=== PATIENT | male | born 1975 | race Caucasian/White ===

== ENCOUNTER 2018-09-03 19:34 | Inpatient (IN) | payer MEDICAID, OTHER ==
[~2018-09-03] VITALS: Ht 175.3 cm; Wt 103.1 kg
[2018-09-03] MEDS ORDERED: FAMOTIDINE 20 MG TAB PO STA (21:09)
[2018-09-03] MEDS ORDERED: LIDOCAINE/MYLANTA 40 ML BTL PO STA (21:09)
[2018-09-03] MEDS ORDERED: BELLADONNA/PHENOBARBITAL TAB PO STA (21:09)
[2018-09-03] MEDS ORDERED: SOD CHLORIDE 0.9% 500 ML IV STA (21:09)
--- NOTE | 2018-09-03 21:16 | ERD ---
ER Documentation Chief Complaint Chief Complaint burning sensation in the pit of his stomach after sips of beer; sweats, too HPI This is a 42-year-old man here for complaints of sharp severe epigastric discomfort occurring at rest while at home he had associated diaphoresis as well. He denies eating anything unusual or spicy prior to the episode states the pain was nonexertional and nonradiating and lasted for about half an hour. He has a long history of hypertension but is noncompliant with medications, he states about a year ago he used antihypertensive medication for a few weeks and then stopped because he wanted to control his blood pressure naturally. Patient states his chest pain has improved since arrival, he denies fevers or chills, no cough, no headache or blurry vision, no loss of consciousness. ROS All systems reviewed and are negative except as per history of present illness. Medications Home Meds No Active Prescriptions or Reported Meds Allergies Allergies: Coded Allergies: No Known Allergy (Verified , 10/22/10) PMhx/Soc Hypertension, medication noncompliance, obesity Medical and Surgical Hx: pt denies Medical Hx History of Surgery: Yes (APPENDECTOMY 2007) Anesthesia Reaction: No Hx Neurological Disorder: No Hx Respiratory Disorders: No Hx Cardiac Disorders: No Hx Psychiatric Problems: No Hx Miscellaneous Medical Probl: No Hx Alcohol Use: No Hx Substance Use: No Hx Tobacco Use: No Smoking Status: Never smoker FmHx Family History: No diabetes Physical Exam Vitals Vital Signs Date Temp Pulse Resp B/P (MAP) Pulse Ox O2 O2 Flow FiO2 Time Delivery Rate 09/03/18 96.7 72 18 192/113 98 19:36 (139) Physical Exam GENERAL: Well-developed, well-nourished, well-hydrated, in no apparent distress, looks nontoxic in appearance HEENT: Moist mucous membranes, pink conjunctiva, no cervical spine tenderness or step-off deformities, no goiter, no jaundice or icterus, extraocular movements intact without pain. No submandibular induration, and no pharyngeal erythema NEURO: Alert and oriented 3, cranial nerves II through XII intact bilaterally, pupils equal round reactive to light, no focal deficits or facial asymmetry, sensation intact distally Strength 5/5 in upper and lower extremities bilaterally CARDIAC: Regular rate and rhythm, no murmurs rubs or gallops LUNGS: Clear bilaterally no wheezing crackles or stridor ABDOMEN: Soft nontender, no guarding, no rigidity, no rebound, no psoas sign no obturator sign. Normoactive bowel sounds SKIN: Warm and dry to touch, no abrasions, contusions, or hematomas, no lacerat ions, no ecchymosis, no target lesions, and without ulcers EXTREMITIES: No clubbing cyanosis or edema, calves are bilaterally symmetrical, no Homans sign, no popliteal cord sign. Distal pulses equal and bilateral PSYCH: Normal affect without agitation or irritability Result Diagram: 09/03/18202309/03/182023 Results 24 hrs Laboratory Tests Test 09/03/18 20:24 White Blood Count 15.9 10^3/ul Red Blood Count 5.86 10^6/ul Hemoglobin 17.2 g/dl Hematocrit 51.0 % Mean Corpuscular Volume 87.0 fl Mean Corpuscular Hemoglobin 29.4 pg Mean Corpuscular Hemoglobin Concent 33.7 g/dl Red Cell Distribution Width 12.5 % Platelet Count 252 10^3/UL Mean Platelet Volume 11.3 fl Immature Granulocytes % 0.400 % Neutrophils % 88.5 % Lymphocytes % 7.3 % Monocytes % 3.2 % Eosinophils % 0.1 % Basophils % 0.5 % Nucleated Red Blood Cells % 0.0 /100WBC Immature Granulocytes # 0.060 10^3/ul Neutrophils # 14.0 10^3/ul Lymphocytes # 1.2 10^3/ul Monocytes # 0.5 10^3/ul Eosinophils # 0.0 10^3/ul Basophils # 0.1 10^3/ul Nucleated Red Blood Cells # 0.0 10^3/ul Sodium Level 140 mmol/L Potassium Level 3.6 mmol/L Chloride Level 103 mmol/L Carbon Dioxide Level 26 mmol/L Anion Gap 11 Blood Urea Nitrogen 19 mg/dl Creatinine 0.95 mg/dl Est Glomerular Filtrat Rate mL/min > 60 mL/min Glucose Level 151 mg/dl Calcium Level 9.5 mg/dl Total Bilirubin 0.5 mg/dl Direct Bilirubin 0.00 mg/dl Indirect Bilirubin 0.5 mg/dl Aspartate Amino Transf (AST/SGOT) 121 IU/L Alanine Aminotransferase (ALT/SGPT) 57 IU/L Alkaline Phosphatase 61 IU/L Troponin I 4.870 ng/ml Total Protein 8.0 g/dl Albumin 4.5 g/dl Globulin 3.50 g/dl Albumin/Globulin Ratio 1.28 Lipase 86 U/L Current Medications Medications Dose Sig/Cal Start Time Status Last (Trade) Ordered Route PRN Stop Time Admin Dose Reason Admin 25 mg ONCE ONCE 09/03/18 DC 09/03/18 Hydrochloroth PO 21:30 21:26 iazide 09/03/18 21:31 (Hydrochlorot hiazide) Sodium 500 ml @ Q1H STAT 09/03/18 DC 09/03/18 Chloride 500 mls/hr IV 21:09 21:23 09/03/18 22:08 Famotidine 20 mg ONCE STAT 09/03/18 DC 09/03/18 (Pepcid) PO 21:09 21:23 09/03/18 21:10 40 ml ONCE STAT 09/03/18 DC 09/03/18 Miscellaneous PO 21:09 21:24 Medication 09/03/18 21:10 (Gi Cocktail (2)) Belladonna/ 2 tab ONCE STAT 09/03/18 DC 09/03/18 Phenobarbital PO 21:09 21:23 () 09/03/18 21:10 Aspirin 324 mg ONCE ONCE 09/03/18 DC 09/03/18 (Aspirin) PO 21:30 21:23 09/03/18 21:31 Procedures/MDM IV line was established 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 Patient was afebrile EKG performed, read by me revealed a normal sinus rhythm at 77 bpm, normal axis, narrow QRS complex, no concerning ST elevations or depressions noted one AP view of the chest performed, read by me reveals no acute infiltrates, normal mediastinum, sharp costophrenic and cardiac borders, no air under the diaphragm. Otherwise unremarkable chest x-ray. I administered 500 cc normal saline IV and hydrochlorothiazide 25 mg p.o. x1 for hypertension. EKG #2 was performed about an hour and a half later reveals a normal sinus rhythm at 75 bpm, normal axis, narrow QRS complex, nonspecific T wave inversions in precordial leads, no concerning ST elevations or depressions noted. Also administered a GI cocktail p.o., famotidine p.o., aspirin 324 mg p.o. for cardioprotective measures. CBC reveals a leukocytosis of 16, electrolytes are unremarkable, liver function test normal, troponin positive at 5 Patient has no complaints of chest pain at this time and is epigastric abdominal pain has resolved but patient did have concerning symptoms this afternoon and was severely hypertensive on arrival. His blood pressure has improved as well but he will be admitted to telemetry setting for continued medical management cardiology consultation Departure Diagnosis: Primary Impression: Non-STEMI (non-ST elevated myocardial infarction) Additional Impression: Hypertensive emergency Condition: IBETH Knutson MD Sep 03, 2018 21:16
[2018-09-03] MEDS ORDERED: ASPIRIN 81 MG TAB PO ONE (21:30)
[2018-09-03] MEDS ORDERED: HYDROCHLOROTHIAZIDE 25 MG TAB PO ONE (21:30)
[2018-09-03 23:46] VITALS: Ht 175.3 cm; Wt 103.1 kg
[2018-09-04] VITALS (9 sets, daily range): BP systolic 138–182; BP diastolic 81–120; PULSE 62–80; RESP 18
[2018-09-04] MEDS ORDERED: hydrALAzine 20 MG INJ IV ONE ×2 (00:30→08:30)
[2018-09-04] MEDS ORDERED: ONDANSETRON 4 MG INJ IV PRN (02:30)
[2018-09-04] MEDS ORDERED: ALBUTEROL/IPRATROPIUM (NEB) 3 ML AMP HHN PRN (02:30)
[2018-09-04] MEDS ORDERED: NACL 0.9% 3 ML SYG IV SCH (02:30)
[2018-09-04] MEDS ORDERED: NITROGLYCERIN (SL) 0.4 MG TAB SL PRN (02:30)
[2018-09-04] MEDS ORDERED: ACETAMINOPHEN 325 MG TAB PO PRN (02:30)
[2018-09-04] MEDS ORDERED: ENOXAPARIN 100 MG/ML SYG SC SCH ×2 (02:30→03:00)
[2018-09-04] MEDS ORDERED: ATORVASTATIN 80 MG TAB PO ONE (03:00)
[2018-09-04] MEDS: DEXTROSE 5%-0.45% NACL 1,000 ML IV SCH ×2 (03:19→12:03)
--- NOTE | 2018-09-04 05:07 | HP ---
Date/Time of Note Date/Time of Note DATE: 09/04/18 TIME: 05:04 Assessment/Plan VTE Prophylaxis Pharmacological prophylaxis: LMWH Lines/Catheters IV Catheter Type (from Nrs): Saline Lock Assessment/Plan Assessment/Plan 1. NSTEMI -Currently on a treatment dose Lovenox. She is status post high-dose aspirin -Supplemental oxygen, aspirin, beta-radha, statin. As needed nitro and morphine -2D echo and cardiology consult 2. Hypertensive urgency: BP better controlled. Adjust hypertensive as needed 3. Leukocytosis: Likely reactive -Check UA Result Diagram: 09/04/18 0225 09/04/18 0225 Results 24hrs Laboratory Tests Test 09/03/18 20:24 09/04/18 02:25 White Blood Count 15.9 H 15.5 H Red Blood Count 5.86 5.78 Hemoglobin 17.2 17.0 Hematocrit 51.0 50.2 Mean Corpuscular Volume 87.0 86.9 Mean Corpuscular Hemoglobin 29.4 29.4 Mean Corpuscular Hemoglobin Concent 33.7 33.9 Red Cell Distribution Width 12.5 12.6 Platelet Count 252 268 Mean Platelet Volume 11.3 H 10.5 H Immature Granulocytes % 0.400 0.500 H Neutrophils % 88.5 H 75.2 Lymphocytes % 7.3 L 17.6 Monocytes % 3.2 6.1 Eosinophils % 0.1 0.2 Basophils % 0.5 0.4 Nucleated Red Blood Cells % 0.0 0.0 Immature Granulocytes # 0.060 H 0.070 H Neutrophils # 14.0 H 11.6 H Lymphocytes # 1.2 2.7 Monocytes # 0.5 0.9 Eosinophils # 0.0 0.0 Basophils # 0.1 0.1 Nucleated Red Blood Cells # 0.0 0.0 Sodium Level 140 142 Potassium Level 3.6 4.1 Chloride Level 103 103 Carbon Dioxide Level 26 29 Anion Gap 11 10 Blood Urea Nitrogen 19 16 Creatinine 0.95 0.89 Est Glomerular Filtrat Rate mL/min > 60 > 60 Glucose Level 151 129 Calcium Level 9.5 9.1 Total Bilirubin 0.5 0.8 Direct Bilirubin 0.00 0.00 Indirect Bilirubin 0.5 0.8 Aspartate Amino Transf (AST/SGOT) 121 H 385 #H Alanine Aminotransferase (ALT/SGPT) 57 64 Alkaline Phosphatase 61 56 Troponin I 4.870 *H 106.000 *H Total Protein 8.0 7.7 Albumin 4.5 4.3 Globulin 3.50 H 3.40 H Albumin/Globulin Ratio 1.28 1.26 Lipase 86 Hemoglobin A1c 5.4 Magnesium Level 1.9 Creatine Kinase 2854 H Creatine Kinase Index 6.6 Creatinine Kinase MB (Mass) 187.00 H Triglycerides Level 128 Cholesterol Level 228 H LDL Cholesterol, Calculated 157 HDL Cholesterol 45 Cholesterol/HDL Ratio 5.0 Thyroid Stimulating Hormone (TSH) 1.830 HPI/ROS Admit Date/Time Admit Date/Time Sep 03, 2018 at 22:14 Hx of Present Illness Patient is a 42-year-old female with a history of hypertension who presents the ER complaining of epigastric abdominal pain, left-sided chest pain and nonbloody nonbilious vomiting. Symptoms been going on for the past 1 day. She also reported associated diaphoresis. When presented to ER, blood pressure was 192/113. First troponin 4.9, second troponin just recently went up to 106. Patient has already been on treatment dose Lovenox. She has also been given high-dose aspirin. Second EKG showed nonspecific T wave abnormalities, no ST elevation or depression. Chest x-ray without acute findings. PMH/Family/Social Past Medical History Medical History: hypertension Medications Current Medications Dextrose/Sodium Chloride 1,000 ml @ 100 mls/hr Q10H IV Last administered on 09/04/18at 03:19; Admin Dose 100 MLS/HR; Start 09/04/18 at 02:03 IV Flush (NS 3 ml) 3 ml PER PROTOCOL IV ; Start 09/04/18 at 02:30 Ondansetron HCl (Zofran Inj) 4 mg Q6H PRN IV NAUSEA/VOMITING; Start 09/04/18 at 02:30 Nitroglycerin (Nitroglycerin (Sl Tab) 0.4 Mg) 1 tab Q5M PRN SL .CHEST PAIN; Start 09/04/18 at 02:30 Acetaminophen (Tylenol Tab) 650 mg Q6H PRN PO .PAIN 1-3 OR TEMP Last administered on 09/04/18at 03:34; Admin Dose 650 MG; Start 09/04/18 at 02:30 Famotidine (Pepcid Iv) 20 mg Q12 IV ; Start 09/04/18 at 09:00 Albuterol/ Ipratropium (Duoneb) 3 ml Q2H RESP THERAPY PRN HHN SHORTNESS OF BREATH; Start 09/04/18 at 02:30 Enoxaparin Sodium (Lovenox) 100 mg Q12H SC Last administered on 09/04/18at 03:33; Admin Dose 100 MG; Start 09/04/18 at 03:00 Aspirin (Halfprin) 81 mg DAILY PO ; Start 09/04/18 at 09:00 Atorvastatin Calcium (Lipitor) 40 mg HS PO ; Start 09/04/18 at 21:00 Coded Allergies: No Known Allergy (Verified , 10/22/10) Past Surgical History Past Surgical Hx: other (See HPI) Family History Significant Family History: no pertinent family hx Social History Alcohol Use: none Smoking Status: Never smoker Drug Use: none Exam/Review of Systems Vital Signs Vitals Vital Signs Date Temp Pulse Resp B/P (MAP) Pulse Ox O2 O2 Flow FiO2 Time Delivery Rate 09/04/18 97.6 66 18 151/93 96 04:57 (112) 09/03/18 Room Air 23:10 Exam Constitutional: other (No acute distress) Head: normocephalic, atraumatic Eyes: EOMI, PERRL Respiratory: clear to auscultation, normal air movement Cardiovascular: regular rate and rhythm Gastrointestinal: soft, non-tender Extremities: normal pulses KASSY HEBERT MD Sep 04, 2018 05:07
[2018-09-04] MEDS ORDERED: FAMOTIDINE 20 MG INJ IV SCH (09:00)
[2018-09-04] MEDS ORDERED: ASPIRIN (EC) 81 MG TAB PO SCH (09:00)
--- NOTE | 2018-09-04 10:26 | PN ---
Date/Time of Note Date/Time of Note DATE: 09/04/18 TIME: 10:14 Assessment/Plan VTE Prophylaxis SCD applied (from Nsg): Yes Pharmacological prophylaxis: LMWH Lines/Catheters IV Catheter Type (from Nrsg): Saline Lock Assessment/Plan Assessment/Plan 1. NSTEMI - Patient states initially had sternal chest discomfort which he described as burning in nature. Given aspirin and GI cocktail in the ED - Denies any significant cardiac family history - Does admit to hypertension and stopped BP medications to try more natural method of control - Currently on LMWH BID - Cardiology consulted and given elevated troponins, will need urgent transfer for further evaluation for cardiac catheterization. Unfortunately, [facility] helper animal laboratory is closed. Requesting transfer to [facility] - Supplemental oxygen, aspirin, and statin. BB on hold given bradycardia. As needed nitro and morphine - ECHO ordered 2. Hypertensive urgency - due to medication noncompliance - Hydralazine PRN - will start on ALLIE and titrate up as needed 3. Leukocytosis - most likely reactive 4. Disposition - Patient troponins are downtrending but given risk for cardiac event, will transfer for possible cardiac cancerization per Dr. Grider's request Result Diagram: 09/04/185 09/04/18 0225 Results 24hrs Laboratory Tests Test 09/03/18 20:24 09/04/18 02:25 09/04/18 05:48 09/04/18 07:58 White Blood Count 15.9 H 15.5 H Red Blood Count 5.86 5.78 Hemoglobin 17.2 17.0 Hematocrit 51.0 50.2 Mean Corpuscular 87.0 86.9 Volume Mean Corpuscular 29.4 29.4 Hemoglobin Mean Corpuscular 33.7 33.9 Hemoglobin Concent Red Cell 12.5 12.6 Distribution Width Platelet Count 252 268 Mean Platelet Volume 11.3 H 10.5 H Immature 0.400 0.500 H Granulocytes % Neutrophils % 88.5 H 75.2 Lymphocytes % 7.3 L 17.6 Monocytes % 3.2 6.1 Eosinophils % 0.1 0.2 Basophils % 0.5 0.4 Nucleated Red Blood 0.0 0.0 Cells % Immature 0.060 H 0.070 H Granulocytes # Neutrophils # 14.0 H 11.6 H Lymphocytes # 1.2 2.7 Monocytes # 0.5 0.9 Eosinophils # 0.0 0.0 Basophils # 0.1 0.1 Nucleated Red Blood 0.0 0.0 Cells # Sodium Level 140 142 Potassium Level 3.6 4.1 Chloride Level 103 103 Carbon Dioxide Level 26 29 Anion Gap 11 10 Blood Urea Nitrogen 19 16 Creatinine 0.95 0.89 Est Glomerular > 60 > 60 Filtrat Rate mL/min Glucose Level 151 129 Calcium Level 9.5 9.1 Total Bilirubin 0.5 0.8 Direct Bilirubin 0.00 0.00 Indirect Bilirubin 0.5 0.8 Aspartate Amino 121 H 385 #H Transf (AST/SGOT) Alanine 57 64 Aminotransferase (AL T/SGPT) Alkaline Phosphatase 61 56 Troponin I 4.870 *H 106.000 *H 104.000 *H 69.200 *H Total Protein 8.0 7.7 Albumin 4.5 4.3 Globulin 3.50 H 3.40 H Albumin/Globulin 1.28 1.26 Ratio Lipase 86 Hemoglobin A1c 5.4 Magnesium Level 1.9 Creatine Kinase 2854 H 2553 H Creatine Kinase 6.6 6.3 Index Creatinine Kinase MB 187.00 H 160.00 H (Mass) Triglycerides Level 128 Cholesterol Level 228 H LDL Cholesterol, 157 Calculated HDL Cholesterol 45 Cholesterol/HDL 5.0 Ratio Thyroid Stimulating 1.830 Hormone (TSH) Subjective 24 Hr Interval Summary Free Text/Dictation Patient states his chest pain has resolved and initially had burning chest discomfort. Denies any N/V. No recent travel. No significant family history. Exam/Review of Systems Exam Vitals Vital Signs Date Temp Pulse Resp B/P (MAP) Pulse Ox O2 O2 Flow FiO2 Time Delivery Rate 09/04/18 70 08:11 09/04/18 98.5 18 182/111 94 07:35 (134) 09/03/18 Room Air 23:10 Intake and Output 09/03/18 09/03/18 09/04/18 1515:00 23:00 07:00 IntakeIntake Total 300 ml BalanceBalance 300 ml Exam General: Patient is laying in bed and answers questions appropriately Eyes: EOMI, pupils reactive to light Neck: Supple Chest: nontender Respiratory: Clear to auscultation bilaterally. no wheezing or rhonchi Cardiovascular: S1, S2, regular rate and rhythm, no obvious murmurs Gastrointestinal: soft, non tenderness to palpation, nondistended, bowel sounds heard. Neurological: Moves all extremities spontaneously Skin: No new skin lesions Results Results 24hrs Laboratory Tests Test 09/03/18 20:24 09/04/18 02:25 09/04/18 05:48 09/04/18 07:58 White Blood Count 15.9 H 15.5 H Red Blood Count 5.86 5.78 Hemoglobin 17.2 17.0 Hematocrit 51.0 50.2 Mean Corpuscular 87.0 86.9 Volume Mean Corpuscular 29.4 29.4 Hemoglobin Mean Corpuscular 33.7 33.9 Hemoglobin Concent Red Cell 12.5 12.6 Distribution Width Platelet Count 252 268 Mean Platelet Volume 11.3 H 10.5 H Immature 0.400 0.500 H Granulocytes % Neutrophils % 88.5 H 75.2 Lymphocytes % 7.3 L 17.6 Monocytes % 3.2 6.1 Eosinophils % 0.1 0.2 Basophils % 0.5 0.4 Nucleated Red Blood 0.0 0.0 Cells % Immature 0.060 H 0.070 H Granulocytes # Neutrophils # 14.0 H 11.6 H Lymphocytes # 1.2 2.7 Monocytes # 0.5 0.9 Eosinophils # 0.0 0.0 Basophils # 0.1 0.1 Nucleated Red Blood 0.0 0.0 Cells # Sodium Level 140 142 Potassium Level 3.6 4.1 Chloride Level 103 103 Carbon Dioxide Level 26 29 Anion Gap 11 10 Blood Urea Nitrogen 19 16 Creatinine 0.95 0.89 Est Glomerular > 60 > 60 Filtrat Rate mL/min Glucose Level 151 129 Calcium Level 9.5 9.1 Total Bilirubin 0.5 0.8 Direct Bilirubin 0.00 0.00 Indirect Bilirubin 0.5 0.8 Aspartate Amino 121 H 385 #H Transf (AST/SGOT) Alanine 57 64 Aminotransferase (AL T/SGPT) Alkaline Phosphatase 61 56 Troponin I 4.870 *H 106.000 *H 104.000 *H 69.200 *H Total Protein 8.0 7.7 Albumin 4.5 4.3 Globulin 3.50 H 3.40 H Albumin/Globulin 1.28 1.26 Ratio Lipase 86 Hemoglobin A1c 5.4 Magnesium Level 1.9 Creatine Kinase 2854 H 2553 H Creatine Kinase 6.6 6.3 Index Creatinine Kinase MB 187.00 H 160.00 H (Mass) Triglycerides Level 128 Cholesterol Level 228 H LDL Cholesterol, 157 Calculated HDL Cholesterol 45 Cholesterol/HDL 5.0 Ratio Thyroid Stimulating 1.830 Hormone (TSH) Medications Medication Current Medications Dextrose/Sodium Chloride 1,000 ml @ 100 mls/hr Q10H IV Last administered on 09/04/18at 03:19; Admin Dose 100 MLS/HR; Start 09/04/18 at 02:03 IV Flush (NS 3 ml) 3 ml PER PROTOCOL IV ; Start 09/04/18 at 02:30 Ondansetron HCl (Zofran Inj) 4 mg Q6H PRN IV NAUSEA/VOMITING; Start 09/04/18 at 02:30 Nitroglycerin (Nitroglycerin (Sl Tab) 0.4 Mg) 1 tab Q5M PRN SL .CHEST PAIN; Start 09/04/18 at 02:30 Acetaminophen (Tylenol Tab) 650 mg Q6H PRN PO .PAIN 1-3 OR TEMP Last administered on 09/04/18at 03:34; Admin Dose 650 MG; Start 09/04/18 at 02:30 Famotidine (Pepcid Iv) 20 mg Q12 IV Last administered on 09/04/18at 08:36; Admin Dose 20 MG; Start 09/04/18 at 09:00 Albuterol/ Ipratropium (Duoneb) 3 ml Q2H RESP THERAPY PRN HHN SHORTNESS OF BREATH; Start 09/04/18 at 02:30 Enoxaparin Sodium (Lovenox) 100 mg Q12H SC Last administered on 09/04/18at 03:33; Admin Dose 100 MG; Start 09/04/18 at 03:00 Aspirin (Halfprin) 81 mg DAILY PO Last administered on 09/04/18at 08:35; Admin Dose 81 MG; Start 09/04/18 at 09:00 Atorvastatin Calcium (Lipitor) 40 mg HS PO ; Start 09/04/18 at 21:00 PRETTY YAO MD Sep 04, 2018 10:26
[2018-09-04] MEDS ORDERED: ENOX100D2 SC (10:29)
[2018-09-04] MEDS ORDERED: LISI-313 PO (10:29)
[2018-09-04] MEDS ORDERED: ATOR40TA68 PO (10:29)
--- NOTE | 2018-09-04 10:29 | PDOCDIS ---
Discharge Instructions DIAGNOSIS Discharge Diagnosis 1. NSTEMI 2. Hypertension CONDITION [id number] Patient Condition: [id number] Guarded ACTIVITY: [id number] Activity Restrictions: [id number] No Restrictions PRETTY YAO MD Sep 04, 2018 10:29
[2018-09-04] MEDS ORDERED: hydrALAzine 20 MG INJ IV PRN (10:30)
--- NOTE | 2018-09-04 10:35 | DS ---
Date/Time of Note Date/Time of Note DATE: 09/04/18 TIME: 10:31 Discharge Summary Admission/Discharge Info Admit Date/Time Sep 03, 2018 at 22:14 Discharge Date/Time 09/04/18 Discharge Diagnosis 1. NSTEMI 2. Hypertension Patient Condition: Guarded Consults Cardiology- Dr. Grider Hx of Present Illness Patient is a 42-year-old female with a history of hypertension who presents the ER complaining of epigastric abdominal pain, left-sided chest pain and nonbloody nonbilious vomiting. Symptoms been going on for the past 1 day. He also reported associated diaphoresis. When presented to ER, blood pressure was 192/113. First troponin 4.9, second troponin just recently went up to 106. Patient has already been given a full dose Lovenox. He has also been given high-dose aspirin in the ED. Second EKG showed nonspecific T wave abnormalities, no ST elevation or depression. Chest x-ray without acute findings. Hospital Course Patient was admitted for chest pain workup and Cardiology was consulted for further recommendations. Given patients troponin spike to 100, decision was made to transfer patient for cardiac catheterization. He was given Aspirin 325mg as well as a dose of Lovenox 100mg SC at 3:33am Patient admits to improvement in chest pain and denies any further episodes of nonbilious emesis. Patients recent troponin trend was 106, 104, and 69. Patient denies any family history of significant cardiac issues. Denies any recent travel. Patient does admit to long standing hypertension and is noncompliant with home medications. Patient remains stable for transfer to acute hospital for further cardiac evaluation. Primary Care Provider Care Physician No Primary Time spent on discharge: > 30 minutes Pending Labs Laboratory Tests Test 09/03/18 20:24 09/04/18 02:25 09/04/18 05:48 09/04/18 07:58 White Blood 15.9 15.5 Count 10^3/ul (4.8-10 10^3/ul (4.8-1 .8) 0.8) Red Blood 5.86 5.78 Count 10^6/ul (4.70-6 10^6/ul (4.70- .10) 6.10) Hemoglobin 17.2 17.0 g/dl (14.0-18.0 g/dl (14.0-18. ) 0) Hematocrit 51.0 50.2 % (42.0-52.0) % (42.0-52.0) Mean 87.0 86.9 Corpuscular fl (82.0-101.0) fl (82.0-101.0 Volume ) Mean 29.4 29.4 Corpuscular pg (29.0-33.0) pg (29.0-33.0) Hemoglobin Mean 33.7 33.9 Corpuscular g/dl (32.0-37.0 g/dl (32.0-37. Hemoglobin Conc ) 0) ent Red Cell 12.5 12.6 Distribution % (11.5-14.5) % (11.5-14.5) Width Platelet Count 252 268 10^3/UL (140-41 10^3/UL (140-4 5) 15) Mean Platelet 11.3 10.5 Volume fl (7.4-10.4) fl (7.4-10.4) Immature 0.400 0.500 Granulocytes % % (0.001-0.429) % (0.001-0.429 ) Neutrophils % 88.5 75.2 % (39.0-77.0) % (39.0-77.0) Lymphocytes % 7.3 17.6 % (15.0-51.0) % (15.0-51.0) Monocytes % 3.2 6.1 % (0.0-11.0) % (0.0-11.0) Eosinophils % 0.1 % (0.0-7.0) 0.2 % (0.0-7.0) Basophils % 0.5 % (0.0-2.0) 0.4 % (0.0-2.0) Nucleated Red 0.0 0.0 Blood Cells % /100WBC (0.0-0. /100WBC (0.0-0 0) .0) Immature 0.060 0.070 Granulocytes # 10^3/ul (0.0-0. 10^3/ul (0.0-0 031) .031) Neutrophils # 14.0 11.6 10^3/ul (1.6-7. 10^3/ul (1.6-7 5) .5) Lymphocytes # 1.2 2.7 10^3/ul (0.8-2. 10^3/ul (0.8-2 9) .9) Monocytes # 0.5 0.9 10^3/ul (0.3-0. 10^3/ul (0.3-0 9) .9) Eosinophils # 0.0 0.0 10^3/ul (0.0-0. 10^3/ul (0.0-0 5) .5) Basophils # 0.1 0.1 10^3/ul (0.0-0. 10^3/ul (0.0-0 1) .1) Nucleated Red 0.0 0.0 Blood Cells # 10^3/ul (0.0-0. 10^3/ul (0.0-0 0) .0) Sodium Level 140 142 mmol/L (135-144 mmol/L (135-14 ) 4) Potassium 3.6 4.1 Level mmol/L (3.5-5.1 mmol/L (3.5-5. ) 1) Chloride Level 103 103 mmol/L (97-110) mmol/L (97-110 ) Carbon Dioxide 26 29 Level mmol/L (21-31) mmol/L (21-31) Anion Gap 11 (5-13) 10 (5-13) Blood Urea 19 mg/dl (7-20) 16 Nitrogen mg/dl (7-20) Creatinine 0.95 0.89 mg/dl (0.61-1.2 mg/dl (0.61-1. 4) 24) Est Glomerular > 60 > 60 Filtrat mL/min (>60) mL/min (>60) Rate mL/min Glucose Level 151 129 mg/dl (70-220) mg/dl (70-220) Calcium Level 9.5 9.1 mg/dl (8.4-10.2 mg/dl (8.4-10. ) 2) Total 0.5 0.8 Bilirubin mg/dl (0.2-1.3) mg/dl (0.2-1.3 ) Direct 0.00 0.00 Bilirubin mg/dl (0.00-0.2 mg/dl (0.00-0. 0) 20) Indirect 0.5 0.8 Bilirubin mg/dl (0-1.1) mg/dl (0-1.1) Aspartate Amino 121 385 Transf (AST/SGO IU/L (15-46) IU/L (15-46) T) Alanine 57 IU/L (13-69) 64 Aminotransferas IU/L (13-69) e (ALT/SGPT) Alkaline 61 56 Phosphatase IU/L (42-121) IU/L (42-121) Troponin I 4.870 106.000 104.000 69.200 ng/ml (0.000-0. ng/ml (0.000-0 ng/ml (0.000-0 ng/ml (0.000-0 120) .120) .120) .120) Total Protein 8.0 7.7 g/dl (6.1-8.1) g/dl (6.1-8.1) Albumin 4.5 4.3 g/dl (3.3-4.9) g/dl (3.3-4.9) Globulin 3.50 3.40 g/dl (1.3-3.2) g/dl (1.3-3.2) Albumin/Globuli 1.28 1.26 n Ratio Lipase 86 U/L (23-300) Hemoglobin A1c 5.4 % (0-5.9) Magnesium 1.9 Level mg/dl (1.7-2.5 ) Creatine 2854 2553 Kinase IU/L (23-200) IU/L (23-200) Creatine Kinase 6.6 6.3 Index Creatinine 187.00 160.00 Kinase MB ng/ml (0.0-2.4 ng/ml (0.0-2.4 (Mass) ) ) Triglycerides 128 Level mg/dl (0-149) Cholesterol 228 Level mg/dl (100-200 ) LDL 157 mg/dl Cholesterol, Calculated HDL 45 Cholesterol mg/dl (27-67) Cholesterol/HDL 5.0 RATIO Ratio Thyroid 1.830 Stimulating MIU/L (0.465-4 Hormone (TSH) .680) PRETTY YAO MD Sep 04, 2018 10:35
--- NOTE | 2018-09-04 17:17 | RADRPT ---
Echocardiogram Report Patient Name: LETICIA CHAUPatient ID: [id number] : 1975 (42y 9m)Study Date: 09/04/2018 7:32:48 AM Gender: MAccession #: [id number] Tech: Rosy Shell [facility] Location: [facility] ([facility]) Ref.Physician: KASSY HEBERT Height(Cm): BSA: Weight(Kg): Quality: AdequateOrder Physician: KASSY HEBERT Account #: Procedures: Echocardiographic Report: Transthoracic echocardiogram with complete 2D, M-Mode, and doppler examination. Indications: NSTEMI. Measurements: 2D/M Mode Doppler Measurement Value Normal Range Measurement Value Normal Range LVIDd 2D 4.5 [ 4.2 - 5.8 ] cm AV Peak Francisco 1.1 [ 100.0 - 170.0 ] cm/sec LVIDs 2D 2.9 [ 2.5 - 4.0 ] cm AV Peak PG 5.0 [ 2.0 - 9.0 ] mmHg LVPWd 2D 1.3 [ 0.6 - 1.0 ] cm LVOT Peak Francisco 1.0 [ 70.0 - 110.0 ] cm/sec IVSd 2D 1.4 [ 0.6 - 1.0 ] cm LVOT Peak PG 4.0 [ 2.0 - 6.0 ] mmHg AoR Diam 2D 2.8 [ 2.6 - 3.4 ] cm MV E Peak Francisco 0.6 [ 60.0 - 130.0 ] cm/sec EDV 2D 92.0 [ 62.0 - 150.0 ] ml MV A Peak Francisco 0.9 [ 100.0 - 120.0 ] cm/sec ESV 2D 32.5 [ 21.0 - 61.0 ] ml MV E/A 0.6 [ 0.8 - 1.5 ] ratio EF 2D 64.7 [ 52.0 - 72.0 ] percent MV Decel Time 169 [ 104 - 258 ] msec LA Dimen 2D 3.3 [ 3.0 - 4.0 ] cm Lat E` Francisco 0.1 [ 10.0 - 15.0 ] cm/sec Lateral E/E` 8.4 [ 1.0 - 2.0 ] ratio MV E/A 0.6 [ 0.8 - 1.5 ] ratio TR Peak Francisco 2.5 [ 100.0 - 280.0 ] cm/sec TR Peak PG 24.0 mmHg RVSP 27.0 [ 10.0 - 36.0 ] mmHg RA Pressure 3.0 mmHg Findings: Left Ventricle: Normal left ventricular cavity size. Moderate concentric left ventricular hypertrophy. Mild left ventricular systolic dysfunction. Ejection fraction is visually estimated at 45 %. Tissue Doppler/Mitral Doppler indices are consistent with impaired relaxation (Stage I diastolic dysfunction). These segments of the LV are hypokinetic apical anterior segment, anteroseptum mid segment, apex and apical septum. Right Ventricle: Normal right ventricular size. Normal right ventricular systolic function. Left Atrium: The left atrium is normal in size. Right Atrium: The right atrium is normal in size. Mitral Valve: Normal appearance and function of the mitral valve with trace physiologic regurgitation. Aortic Valve: Normal appearance of the aortic valve. No significant aortic stenosis or insufficiency. Tricuspid Valve: Normal appearance of the tricuspid valve. The estimated Peak RVSP is 27 mmHg. There is trace tricuspid regurgitation. Pulmonic Valve: Normal pulmonic valve appearance. Pericardium: Normal pericardium with no significant pericardial effusion. Aorta: Normal aortic root. IVC: Normal size and normal respiratory collapse consistent with normal right atrial pressure. Conclusions: Normal left ventricular cavity size. Moderate concentric left ventricular hypertrophy. Mild left ventricular systolic dysfunction. Ejection fraction is visually estimated at 45 %. Tissue Doppler/Mitral Doppler indices are consistent with impaired relaxation (Stage I diastolic dysfunction). These segments of the LV are hypokinetic apical anterior segment, anteroseptum mid segment, apex and apical septum. Normal appearance and function of the mitral valve with trace physiologic regurgitation. Normal appearance of the aortic valve. No significant aortic stenosis or insufficiency. Normal appearance of the tricuspid valve. The estimated Peak RVSP is 27 mmHg. There is trace tricuspid regurgitation. Electronically Signed By: Mark Grider 2018-09-04 17:15:43 PDT
[2018-09-04] MEDS ORDERED: ATORVASTATIN 40 MG TAB PO SCH (21:00)
[2018-09-05] MEDS ORDERED: LISINOPRIL 5 MG TAB PO SCH (09:00)
== END 2018-09-04 13:40 | disposition short-term general hospital (02) | DRG 281 ==
LOC: E/R 19:34 → TEL 22:14
PROVIDERS: ADMIT Internal Medicine; ATTEND Internal Medicine
DX: I21.4 Non-ST elevation (NSTEMI) myocardial infarction (principal); I16.1 Hypertensive emergency; I95.9 Hypotension, unspecified; Z79.82 Long term (current) use of aspirin
CPT/HCPCS: 36415; 71045; 80053; 80061; 82550; 82553; 83036; 83690; 83735; 84443; 84484; 85025; 87081; 93005; 93306; J0360; J1650; J2405; J7040; J7042